=== PATIENT | male | born 1990 | race Caucasian/White ===

== ENCOUNTER 2017-10-25 02:14 | Emergency (ER) | payer OTHER ==
[2017-10-25 02:22] VITALS: BP 163/95
[2017-10-25] MEDS ORDERED: Sulfamethox/Trimethoprim DS 800/160* TAB PO ONE (03:40)
--- NOTE | 2017-10-25 03:42 | ED ---
Skin Complaint - HPI Summary HPI Summary: 27M presents with right middle finger swelling for a day. He states that noticed some swelling to distal tip of near end of nail bed. He denies any injury to the area. 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 no fever. no LOC of range of motion. - History of Current Complaint Chief Complaint: EDExtremityUpper Time Seen by Provider: 10/25/17 02:53 Stated Complaint: RIGHT FINGER INJURY Pain Intensity: 5 - Allergy/Home Medications Allergies/Adverse Reactions: Allergies Allergy/AdvReac Type Severity Reaction Status Date / Time Penicillins AdvReac Hives Verified 10/25/17 02:17 PMH/Surg Hx/FS Hx/Imm Hx Endocrine/Hematology History: Denies: Hx Anticoagulant Therapy Cardiovascular History: Denies: Hx Myocardial Infarction Infectious Disease History: No Infectious Disease History: Denies: Traveled Outside the [place] in Last 30 Days - Family History Known Family History: Positive: Diabetes - Social History Occupation: Employed Full-time Alcohol Use: Occasionally Review of Systems Negative: Fever Negative: Chest Pain Negative: Shortness Of Breath Positive: Edema - right middle finger All Other Systems Reviewed And Are Negative: Yes Physical Exam Triage Information Reviewed: Yes Vital Signs On Initial Exam: Initial Vitals Temp Pulse Resp BP Pulse Ox 98 F 88 16 163/95 100 10/25/17 02:14 10/25/17 02:14 10/25/17 02:14 10/25/17 02:14 10/25/17 02:14 Vital Signs Reviewed: Yes Appearance: Positive: Well-Appearing Skin: Positive: Warm, Dry, Other - erythema and edema near nail bed of right middle finger. Head/Face: Positive: Normal Head/Face Inspection Eyes: Positive: Normal, Conjunctiva Clear Respiratory/Lung Sounds: Positive: Clear to Auscultation, Breath Sounds Present Cardiovascular: Positive: Normal, RRR Musculoskeletal: Positive: Strength/ROM Intact - right middle finger, Other - good pulses, capillary refill<2 secs Neurological: Positive: Normal Psychiatric: Positive: Normal Procedures - Incision and Drainage Site: right middle finger Anesthesia: Digital Instrument(s): Scalpel Diagnostics - Vital Signs Vital Signs Temp Pulse Resp BP Pulse Ox 10/25/17 02:14 98 F 88 16 163/95 100 - Laboratory Lab Statement: Any lab studies that have been ordered have been reviewed, and results considered in the medical decision making process. Course/Dx - Course Course Of Treatment: 27M presents with right middle finger swelling for a day. He states that noticed some swelling to distal tip of near end of nail bed. He denies any injury to the area. 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 no fever. no LOC of range of motion. on exam has paronychia of right middle finger. attempt I&D paronchyia and unable to get any drainage as is to early. told to do warm soaks and take antibiotic. patient understand and agrees with plan. - Differential Diagnoses - Skin Complaint Differential Diagnoses: Abscess, Cellulitis, Contact Dermatitis - Diagnoses Provider Diagnoses: Paronychia of finger of right hand Discharge - Discharge Plan Condition: Good Disposition: HOME Prescriptions: Sulfamethox/Trimethoprim DS* [Bactrim DS 800/160 TAB*] 1 tab PO BID #19 tab Patient Education Materials: Paronychia (ED) Referrals: No Primary Care Phys,NOPCP [Primary Care Provider] - Additional Instructions: Soak finger twice a day Take bactrim twice a day for 10 days Take ibuprofen for pain every 6 hours Return to ED if develop fever, spreading redness or any new or worsening symptoms
== END 2017-10-25 04:13 | disposition home or self-care (01) ==
LOC: ED 02:14
DX: L03.011 Cellulitis of right finger (principal); Z88.0 Allergy status to penicillin
CPT/HCPCS: 10060; 99281; A9270-GY

== ENCOUNTER 2017-12-31 08:15 | Emergency (ER) | payer SELFPAY ==
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
[2017-12-31 10:49] VITALS: BP 129/78
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
== END 2017-12-31 10:47 | disposition home or self-care (01) ==
LOC: ED 08:15
DX: S40.012A Contusion of left shoulder, initial encounter (principal); S60.221A Contusion of right hand, initial encounter; Z87.891 Personal history of nicotine dependence; V89.2XXA Person injured in unspecified motor-vehicle accident, traffic, initial encounter; Y92.9 Unspecified place or not applicable
CPT/HCPCS: 99282

== ENCOUNTER 2018-09-07 22:54 | Emergency (ER) | payer OTHER ==
[2018-09-07] MEDS ORDERED: Ciproflox/Dexameth OTIC.SUSP* 7.5 ML BTL RIGHT EAR ONE (23:53)
--- NOTE | 2018-09-07 23:55 | ED ---
Throat Pain/Nasal Congestion - HPI Summary HPI Summary: 28-year-old male presents with right ear pain for the past 3 days. He admits to a decrease in hearing. He admits to pain with movement of his ears. He has history of psoriasis. He denies any fevers. No sinus congestion. On exam has psoriasis around right ear. Right canal is edematous and erythematous. TMs normal. We'll treat with Ciprodex. Told to follow with primary to make sure resolving. Patient understands agrees with plan. - History of Current Complaint Chief Complaint: EDEarPain Time Seen by Provider: 09/07/18 23:32 - Allergies/Home Medications Allergies/Adverse Reactions: Allergies Allergy/AdvReac Type Severity Reaction Status Date / Time Penicillins Allergy Hives Verified 09/07/18 23:47 Home Medications: Home Medications NK [No Home Medications Reported] 09/07/18 [History Confirmed 09/07/18] PMH/Surg Hx/FS Hx/Imm Hx Endocrine/Hematology History: Denies: Hx Anticoagulant Therapy, Hx Diabetes Cardiovascular History: Denies: Hx Coronary Artery Disease, Hx Hypertension, Hx Myocardial Infarction - Immunization History Immunizations Up to Date: Yes Infectious Disease History: No Infectious Disease History: Denies: Traveled Outside the [place] in Last 30 Days - Family History Known Family History: Positive: Cardiac Disease, Diabetes - Social History Alcohol Use: None Substance Use Type: Reports: None Smoking Status (MU): Never Smoked Tobacco Review of Systems Negative: Fever Positive: Ear Ache Negative: Chest Pain Negative: Shortness Of Breath All Other Systems Reviewed And Are Negative: Yes Physical Exam Triage Information Reviewed: Yes Vital Signs On Initial Exam: Initial Vitals Temp Pulse Resp BP Pulse Ox 98.9 F 70 15 156/78 96 09/07/18 23:10 09/07/18 23:10 09/07/18 23:10 09/07/18 23:10 09/07/18 23:10 Vital Signs Reviewed: Yes Appearance: Positive: Well-Appearing Skin: Positive: Warm, Dry Head/Face: Positive: Normal Head/Face Inspection Eyes: Positive: Normal, EOMI, RANDEE, Conjunctiva Clear ENT: Positive: Pharynx normal, TMs normal, Other - pain with manipulation of tragus. edematous and erythematous right canal ear Respiratory/Lung Sounds: Positive: Clear to Auscultation, Breath Sounds Present Cardiovascular: Positive: Normal, RRR Musculoskeletal: Positive: Normal Neurological: Positive: Normal Psychiatric: Positive: Normal Diagnostics - Vital Signs Vital Signs Temp Pulse Resp BP Pulse Ox 09/07/18 23:10 98.9 F 70 15 156/78 96 - Laboratory Lab Statement: Any lab studies that have been ordered have been reviewed, and results considered in the medical decision making process. EENT Course/Dx - Course Course Of Treatment: 28-year-old male presents with right ear pain for the past 3 days. He admits to a decrease in hearing. He admits to pain with movement of his ears. He has history of psoriasis. He denies any fevers. No sinus congestion. On exam has psoriasis around right ear. Right canal is edematous and erythematous. TMs normal. We'll treat with Ciprodex. Told to follow with primary to make sure resolving. Patient understands agrees with plan - Differential Diagnoses Differential Diagnoses: Otitis Externa, Otitis Media, Sinusitis - Diagnoses Provider Diagnoses: Right otitis externa Discharge - Sign-Out/Discharge Documenting (check all that apply): Patient Departure - Discharge Plan Condition: Good Disposition: HOME Patient Education Materials: Otitis Externa (ED) Referrals: Gavin Licona MD [Primary Care Provider] - Additional Instructions: Use 4 drops twice a day for 7 days Take Tylenol or ibuprofen for pain every 6 hours as needed Avoid swimming until done with antibiotic Follow up with primary in a week to make sure resolving Return to ED if develop any new or worsening symptoms - Billing Disposition and Condition Condition: GOOD Disposition: Home
[2018-09-08 00:15] VITALS: BP 126/70
== END 2018-09-08 00:15 | disposition home or self-care (01) ==
LOC: ED 22:54
DX: H60.91 Unspecified otitis externa, right ear (principal); L40.9 Psoriasis, unspecified; Z88.0 Allergy status to penicillin
CPT/HCPCS: 99282; A9270-GY

== ENCOUNTER 2018-11-11 03:22 | Emergency (ER) | payer OTHER ==
--- NOTE | 2018-11-11 04:32 | ED ---
Lower Extremity - HPI Summary HPI Summary: 28 year old M presenting to [facility] complains of left thigh pain that radiates to his back and down his left leg since five days ago, worse since one hour ago. Patient describes the pain as burning and pinching. The patient rates the pain 4 /10 in severity. Symptoms aggravated by sitting for long periods of time. Symptoms alleviated by nothing. Patient denies dysuria, problems with gait, and left calf pain. 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 - History of Current Complaint Chief Complaint: EDExtremityLower Stated Complaint: LEG PAIN Time Seen by Provider: 11/11/18 04:18 Hx Obtained From: Patient Onset/Duration: Still Present - 5 Severity Currently: Moderate Pain Intensity: 4 Pain Scale Used: 0-10 Numeric Associated Signs And Symptoms: Positive: Negative - dysuria, problems with gait , and left calf pain Aggravating Factor(s): Nothing Alleviating Factor(s): Nothing - Allergies/Home Medications Allergies/Adverse Reactions: Allergies Allergy/AdvReac Type Severity Reaction Status Date / Time Penicillins Allergy Hives Verified 11/11/18 04:25 PMH/Surg Hx/FS Hx/Imm Hx Previously Healthy: No - Hx psorasis, hx varicose veins Endocrine/Hematology History: Denies: Hx Anticoagulant Therapy, Hx Diabetes Cardiovascular History: Denies: Hx Coronary Artery Disease, Hx Hypertension, Hx Myocardial Infarction - Surgical History Surgery Procedure, Year, and Place: None Infectious Disease History: No Infectious Disease History: Denies: Traveled Outside the [place] in Last 30 Days - Family History Known Family History: Positive: Cardiac Disease, Diabetes - Social History Alcohol Use: None Hx Substance Use: No Substance Use Type: Reports: None Hx Tobacco Use: No Smoking Status (MU): Never Smoked Tobacco Review of Systems Constitutional: Negative - problems with gait Negative: dysuria Musculoskeletal: Negative - left calf pain Positive: Other - left thigh pain All Other Systems Reviewed And Are Negative: Yes Physical Exam - Summary Physical Exam Summary: Appearance: Well-appearing, Well-nourished, lying in bed comfortable Skin: Warm, dry, no obvious rash Eyes: sclera anicteric, no conjunctival pallor ENT: mucous membranes moist Neck: deferred Respiratory: No signs of respiratory distress Cardiovascular: Appears well perfused, pulses are nml Abdomen: deferred Musculoskeletal: Moving all 4 extremities without obvious discomfort Neurological: Awake and alert, mentation is normal, speech is fluent and appropriate Psychiatric: affect is normal, does not appear anxious or depressed Triage Information Reviewed: Yes Vital Signs On Initial Exam: Initial Vitals Temp Pulse Resp BP Pulse Ox 97.7 F 106 16 128/80 96 11/11/18 03:23 11/11/18 03:23 11/11/18 03:23 11/11/18 03:23 11/11/18 03:23 Vital Signs Reviewed: Yes Diagnostics - Vital Signs Vital Signs Temp Pulse Resp BP Pulse Ox 11/11/18 03:23 97.7 F 106 16 128/80 96 - Laboratory Lab Statement: Any lab studies that have been ordered have been reviewed, and results considered in the medical decision making process. Lower Extremity Course/Dx - Course Course Of Treatment: 28 year old M presenting to [facility] complains of left thigh pain that radiates to his back and down his left leg described as burning and pinching since five days ago, worse since one hour ago. Symptoms aggravated by sitting for long periods of time. Discussed discharge plan with patient. He was given instructions to allow the sciatica to get better on its own and to follow up with his primary care provider. Recommended over the counter Motrin to help alleviate some pain. Patient understands. He is agreeable to discharge. - Diagnoses Provider Diagnoses: Sciatica Discharge - Sign-Out/Discharge Documenting (check all that apply): Patient Departure - Discharge - Discharge Plan Condition: Good Disposition: HOME Patient Education Materials: Sciatica (ED), Lower Back Exercises (ED) Referrals: Gavin Licona MD [Primary Care Provider] - - Attestation Statements Document Initiated by Scribe: Yes Documenting Scribe: Cheyenne Valles Provider For Whom Hemant is Documenting (Include Credential): Keegan Evans MD Scribe Attestation: Cheyenne Weinberg, scribed for Keegan Evans MD on 11/11/18 at 0439. Status of Scribe Document: Ready
[2018-11-11 04:37] VITALS: BP 136/82
== END 2018-11-11 04:35 | disposition home or self-care (01) ==
LOC: ED 03:22
DX: M54.30 Sciatica, unspecified side (principal); M79.652 Pain in left thigh; M54.9 Dorsalgia, unspecified
CPT/HCPCS: 99282

== ENCOUNTER 2018-11-25 10:57 | Emergency (ER) | payer OTHER ==
[2018-11-25 13:38] VITALS: BP 127/85
--- NOTE | 2018-11-25 15:39 | ED ---
Back Pain - HPI Summary HPI Summary: Patient is a 28-year-old male with no past significant medical history presenting to the ED with mid lower back pain persistent over the course of the last week. He states he states constantly for his job and while at home and has been endorsing worsening pain to this area which radiates to the right posterior thigh. This is his third visit for being seen for same. First visit he was given steroids which he has not taken. Second visit he was giving no medications but stated he had sciatica. He comes in today with continuing pain and would like an image. He has not taken any [id number] medications for relief. He has not been using heat or ice. He remains ambulatory. Denies any bladder or bowel dysfunction. Denies any numbness or tingling in the bilateral lower extremities. - History of Current Complaint Chief Complaint: EDBackInjuryPain Stated Complaint: PAINIC ATTACK Time Seen by Provider: 11/25/18 11:34 Hx Obtained From: Patient Onset/Duration: Sudden Onset Onset/Duration: Started Hours Ago Timing: Constant Back Pain Location: Is Discrete @ - mid low back pain Pain Intensity: 2 Pain Scale Used: 0-10 Numeric Alleviating Symptom(s): Rest, Position Associated Signs And Symptoms: Negative: Swelling, Redness, Bruising, Weakness, Numbness, Tingling, Bladder Incontinence, Bowel Incontinence, Weight Loss, Pain with Weight Bearing - Risk Factors AAA Risk Factors: Negative TAD Risk Factors: Negative Cauda Equina Risk Factors: Negative Epidural Abscess Risk Factors: Negative - Allergies/Home Medications Allergies/Adverse Reactions: Allergies Allergy/AdvReac Type Severity Reaction Status Date / Time Penicillins Allergy Hives Verified 11/11/18 04:25 PMH/Surg Hx/FS Hx/Imm Hx Previously Healthy: Yes Endocrine/Hematology History: Denies: Hx Anticoagulant Therapy, Hx Diabetes Cardiovascular History: Denies: Hx Coronary Artery Disease, Hx Hypertension, Hx Myocardial Infarction - Surgical History Surgery Procedure, Year, and Place: None - Immunization History Hx Pertussis Vaccination: No Immunizations Up to Date: Yes Infectious Disease History: No Infectious Disease History: Denies: Traveled Outside the [place] in Last 30 Days - Family History Known Family History: Positive: Cardiac Disease, Diabetes - Social History Occupation: Employed Full-time Lives: With Family Alcohol Use: None Hx Substance Use: No Substance Use Type: Reports: None Hx Tobacco Use: No Smoking Status (MU): Never Smoked Tobacco Review of Systems Constitutional: Negative Negative: Fever, Chills, Fatigue, Skin Diaphoresis Negative: Palpitations, Chest Pain Negative: Shortness Of Breath, Cough Genitourinary: Negative Positive: no symptoms reported, see HPI Positive: Arthralgia - mid low back pain Skin: Negative Neurological: Negative All Other Systems Reviewed And Are Negative: Yes Physical Exam Triage Information Reviewed: Yes Vital Signs On Initial Exam: Initial Vitals Temp Pulse Resp BP Pulse Ox 99.0 F 104 18 139/80 96 11/25/18 11:09 11/25/18 11:09 11/25/18 11:09 11/25/18 11:09 11/25/18 11:09 Vital Signs Reviewed: Yes Appearance: Positive: Well-Appearing, Well-Nourished Skin: Positive: Warm, Skin Color Reflects Adequate Perfusion Head/Face: Positive: Normal Head/Face Inspection Eyes: Positive: EOMI, RANDEE, Conjunctiva Clear Neck: Positive: Supple, No Lymphadenopathy Respiratory/Lung Sounds: Positive: Clear to Auscultation, Breath Sounds Present Cardiovascular: Positive: Pulses are Symmetrical in both Upper and Lower Extremities Musculoskeletal: Positive: Strength/ROM Intact, Pain @ - mid low back Neurological: Positive: Speech Normal Psychiatric: Positive: Affect/Mood Appropriate AVPU Assessment: Alert Diagnostics - Vital Signs Vital Signs Temp Pulse Resp BP Pulse Ox 11/25/18 13:39 98.9 F 61 16 127/85 95 11/25/18 13:36 127/85 11/25/18 13:00 62 94 11/25/18 12:00 63 94 11/25/18 11:59 70 16 94 11/25/18 11:27 90 97 11/25/18 11:09 99.0 F 104 18 139/80 96 - Laboratory Lab Statement: Any lab studies that have been ordered have been reviewed, and results considered in the medical decision making process. Back Pain Course/Dx - Course Course Of Treatment: Patient is evaluated for acute mid spine and low back pain times one week radiating to the right posterior thigh which has been intermittent. Denies any blood in her pelvis which. Denies any numbness or tingling to the bilateral lower extremity's. Denies any foot drop. On physical examination, no step-off is noted, no ecchymosis or signs of trauma. CT of the lumbar spine obtained which is negative. Have encouraged him to take his prescribed prednisone and to follow-up with his PCP. He is okay with this plan and discharged. - Diagnoses Provider Diagnoses: Low back pain Discharge - Sign-Out/Discharge Documenting (check all that apply): Patient Departure - Discharge Plan Condition: Stable Disposition: HOME Patient Education Materials: Lumbar Radiculopathy (ED), Lower Back Exercises ( ED) Referrals: Gavin Licona MD [Primary Care Provider] - Additional Instructions: Please continue with your steroids. Ibuprofen 600mg three times daily Moist heat to the area Gentle stretches and massage - Billing Disposition and Condition Condition: STABLE Disposition: Home
== END 2018-11-25 13:39 | disposition home or self-care (01) ==
LOC: ED 10:57
DX: M54.5 Low back pain (principal); Z88.0 Allergy status to penicillin
CPT/HCPCS: 72131; 99283

== ENCOUNTER 2018-12-28 21:05 | Emergency (ER) | payer OTHER ==
[2018-12-28 22:45] LABS: ABS Basophils 0.2 10^3/ul (0-0.2); ABS Eosinophils 0.2 10^3/ul (0-0.6); ABS Lymphocytes 1.9 10^3/ul (1.0-4.8); ABS Monocytes 0.7 10^3/ul (0-0.8); ABS Neutrophils 5.9 10^3/ul (1.5-7.7); ABS Nucleated RBC 0 10^3/ul; Eosinophil % 1.9 %; Hematocrit 48 % (42-52); Hemoglobin 16.7 g/dl (14.0-18.0); Lymphocyte % 21.7 %; Mean Corpuscular HGB Conc 35 g/dl (31-36); Mean Corpuscular Hemoglobin 31 pg (27-31); Mean Corpuscular Volume 90 fL (80-94); Mean Platelet Volume 8.1 fL (7.4-10.4); Nucleated Red Blood Cells % 0; Platelet Count 366 10^3/ul (150-450); Red Cell Distribution Width 13 % (10.5-15); White Blood Count 8.9 10^3/ul (3.5-10.8)
--- NOTE | 2018-12-28 22:58 | ED ---
GI/ HPI - HPI Summary HPI Summary: Patient is a 28-year-old male with hx of psoriasis presenting with 2 month hx of diarrhea. Patient notes the diarrhea is soft, yellow, and has 2-3 episodes per day. Patient also notes intermittent, diffuse abdominal pain during this time. The pain changes based on what he eats. He was seen by his PCP on Tuesday for this problem. He was given antacids at the time, and denies any relief. He states the antacids do help with the occasionally epigastric burning pain that he gets. Patient denies any episodes of constipation. Denies chest pain, palpitations, cold/heat intolerance. Denies any recent travel, alcohol/tobacco/ drug use. Has hx of anxiety and patient admits the diarrhea/abdominal pain has caused distress as he is worried about the cause, is also having increased stress at home for several months. Denies any personal or family hx GERD, collitis, IBS, thyroid disease. Denies recent antibiotic use. has not camped or drank any unfiltered water. no fevers, weight loose or blood in stool. - History of Current Complaint Chief Complaint: EDAbdPain Time Seen by Provider: 12/28/18 22:18 Stated Complaint: ABD PAIN Hx Obtained From: Patient Onset/Duration: Started Weeks Ago, Still Present Timing: Intermittent Severity: Mild Current Severity: Mild Pain Intensity: 1 Location of Pain: Diffuse, Umbilical Pain Characteristics: Aching Associated Signs and Symptoms: Positive: Diarrhea, Abdominal Pain. Negative: Dizziness, Syncope, Nausea, Vomiting, Constipation, Fever, Dysuria, Chills, Lightheadedness, Cough, Chest Pain Alleviating Factor(s): Nothing - Allergy/Home Medications Allergies/Adverse Reactions: Allergies Allergy/AdvReac Type Severity Reaction Status Date / Time Penicillins Allergy Hives Verified 12/28/18 21:11 Home Medications: Home Medications Omeprazole 40 mg PO DAILY 12/28/18 [History Confirmed 12/28/18] PMH/Surg Hx/FS Hx/Imm Hx Previously Healthy: Yes Endocrine/Hematology History: Denies: Hx Anticoagulant Therapy, Hx Diabetes, Hx Thyroid Disease Cardiovascular History: Denies: Hx Coronary Artery Disease, Hx Hypertension, Hx Myocardial Infarction Respiratory History: Denies: Hx Asthma, Hx Chronic Obstructive Pulmonary Disease (COPD) GI History: Denies: Hx Crohn's Disease, Hx Gastroesophageal Reflux Disease, Hx Irritable Bowel Psychiatric History: Reports: Hx Anxiety - Surgical History Surgery Procedure, Year, and Place: None Infectious Disease History: No Infectious Disease History: Denies: Traveled Outside the [place] in Last 30 Days - Family History Known Family History: Positive: Cardiac Disease - Father, [place], 39 , Diabetes - Social History Alcohol Use: None Hx Substance Use: No Substance Use Type: Reports: None Hx Tobacco Use: No Smoking Status (MU): Never Smoked Tobacco Review of Systems Negative: Fever, Chills, Fatigue Negative: Palpitations, Chest Pain Negative: Shortness Of Breath, Cough Positive: Abdominal Pain, Diarrhea. Negative: Vomiting, Nausea Positive: no symptoms reported. Negative: burning, hematuria, pain Negative: Myalgia Negative: Headache Positive: Anxious All Other Systems Reviewed And Are Negative: Yes Physical Exam Triage Information Reviewed: Yes Vital Signs On Initial Exam: Initial Vitals Temp Pulse Resp BP Pulse Ox 97.0 F 105 16 150/102 97 12/28/18 21:07 12/28/18 21:07 12/28/18 21:07 12/28/18 21:07 12/28/18 21:07 Vital Signs Reviewed: Yes Appearance: Positive: Well-Appearing - Appears anxious, Well-Nourished Skin: Positive: Warm, Dry, Scaly Skin/Lesions - Psoriatic lesions on scalp, Erythema @ - upper back, patient attributes to anxiety Head/Face: Positive: Normal Head/Face Inspection Eyes: Positive: Normal, EOMI, RANDEE Neck: Positive: Supple, Nontender, No Lymphadenopathy, Other: - No thyromegaly Respiratory/Lung Sounds: Positive: Clear to Auscultation, Breath Sounds Present Cardiovascular: Positive: Normal, RRR. Negative: Murmur, Leg Edema Left, Leg Edema Right Abdomen Description: Positive: Nontender, No Organomegaly, Soft Bowel Sounds: Positive: Present Musculoskeletal: Positive: Normal, Strength/ROM Intact Neurological: Positive: Normal, Sensory/Motor Intact, Alert, Oriented to Person Place, Time Psychiatric: Positive: Affect/Mood Appropriate, Anxious Diagnostics - Vital Signs Vital Signs Temp Pulse Resp BP Pulse Ox 12/28/18 21:07 97.0 F 105 16 150/102 97 - Laboratory Result Diagrams: 12/28/18 22:34 12/28/18 22:34 Lab Statement: Any lab studies that have been ordered have been reviewed, and results considered in the medical decision making process. GIGU Course/Dx - Course Course Of Treatment: 28-year-old male presents with loose stool for the past 2 months. He states his stool is yellow. He admits occasional abdominal pain that seems to change based on what he eats. no fevers, weight loss or blood in stool. no nausea or vomiting. on exam nontender abd. appears anxious. denies any si/hi. wbc normal. crp normal. discussed that should follow up with primary as may benefit for testing for celiac or other malaborption disorder but symptoms are likely due to ibs. told to keep a food journal. patient declined anxiety medication. patient understand and agrees with plan - Diagnoses Differential Diagnoses - Male: Diarrhea, Gastroenteritis (Bacterial), Gastroenteritis (Viral) Provider Diagnoses: Diarrhea Discharge - Sign-Out/Discharge Documenting (check all that apply): Patient Departure Patient Received Moderate/Deep Sedation with Procedure: No - Discharge Plan Condition: Good Disposition: HOME Patient Education Materials: Irritable Bowel Syndrome (ED) Referrals: Rajat Chatterjee MD [Medical Doctor] - Jade Perry NP [Primary Care Provider] - Additional Instructions: symptoms likely due to IBS but you should follow up with primary for further work or can follow up with GI keep a food journal of foods eat and symptoms Drink plenty of fluids Take Tylenol as needed for pain Return to ED if develop any new or worsening symptoms - Billing Disposition and Condition Condition: GOOD Disposition: Home
[2018-12-28 23:01] LABS: ALT 22 U/L (7-52); AST 17 U/L (13-39); Albumin 4.9 g/dL (3.2-5.2); Albumin/Globulin Ratio 1.8 (1-3); Alkaline Phosphatase 106 U/L (34-104); Anion Gap 5 mmol/L (2-11); BUN/Creatinine Ratio 10.2 (8-20); Blood Urea Nitrogen 11 mg/dL (6-24); C Reactive Protein < 1.00 mg/L (<8.01); CO2 Carbon Dioxide 30 mmol/L (22-32); Calcium 9.8 mg/dL (8.6-10.3); Chloride 104 mmol/L (101-111); EGFR Non-African American 82.6 (>60); Globulin 2.8 g/dL (2-4); Glucose 113 mg/dL (70-100); Potassium 3.7 mmol/L (3.5-5.0); Sodium 139 mmol/L (135-145); Total Protein 7.7 g/dL (6.4-8.9)
[2018-12-28 23:30] LABS: TSH (Thyroid Stimulating Horm) 1.65 mcIU/mL (0.34-5.60)
[2018-12-28 23:56] VITALS: BP 127/78
== END 2018-12-28 23:55 | disposition home or self-care (01) ==
LOC: ED 21:05
DX: R19.7 Diarrhea, unspecified (principal); R10.9 Unspecified abdominal pain; Z88.0 Allergy status to penicillin
CPT/HCPCS: 36415; 80053; 83690; 84443; 85025; 86140; 99283

== ENCOUNTER 2019-05-28 20:33 | Emergency (ER) | payer OTHER ==
[2019-05-28 23:02] LABS: ABS Eosinophils 0.2 10^3/ul (0-0.6); ABS Lymphocytes 2.1 10^3/ul (1.0-4.8); ABS Monocytes 0.8 10^3/ul (0-0.8); ABS Neutrophils 6.7 10^3/ul (1.5-7.7); Eosinophil % 2.1 %; Hematocrit 47 % (42-52); Hemoglobin 16.3 g/dL (14.0-18.0); Lymphocyte % 20.9 %; Mean Corpuscular HGB Conc 35 g/dL (31-36); Mean Corpuscular Hemoglobin 32 pg (27-31); Mean Corpuscular Volume 93 fL (80-94); Mean Platelet Volume 8.3 fL (7.4-10.4); Platelet Count 347 10^3/uL (150-450); Red Blood Count 5.06 10^6 /uL (4.18-5.48); Red Cell Distribution Width 13 % (10-15); White Blood Count 9.8 10^3/uL (3.5-10.8)
--- NOTE | 2019-05-29 00:23 | ED ---
Respiratory - HPI Summary HPI Summary: This patient is a 29 year old M presenting to ED with a chief complaint of anxiety attack since 05/26/19. Patient reports he was given anxiety medication but it did not help. He has difficulty breathing, heart racing, weakness, and feels shaky. The patient rates the pain 0/10 in severity. Symptoms aggravated by nothing. Symptoms alleviated by nothing. - History of Current Complaint Chief Complaint: EDUpperRespComplaint Stated Complaint: SOB PER PT Time Seen by Provider: 05/29/19 00:04 Hx Obtained From: Patient Onset/Duration: Lasting Days - Since 05/26/19, Still Present Timing: Constant Current Severity: None Pain Intensity: 0 Sputum Amount: None Aggravating Factor(s): Nothing Alleviating Factor(s): Nothing Associated Signs and Symptoms: SOB - Allergy/Home Medications Allergies/Adverse Reactions: Allergies Allergy/AdvReac Type Severity Reaction Status Date / Time Penicillins Allergy Hives Verified 05/29/19 00:19 PMH/Surg Hx/FS Hx/Imm Hx Endocrine/Hematology History: Denies: Hx Anticoagulant Therapy, Hx Diabetes, Hx Thyroid Disease Cardiovascular History: Denies: Hx Coronary Artery Disease, Hx Hypertension, Hx Myocardial Infarction Respiratory History: Denies: Hx Asthma, Hx Chronic Obstructive Pulmonary Disease (COPD) GI History: Denies: Hx Crohn's Disease, Hx Gastroesophageal Reflux Disease, Hx Irritable Bowel Sensory History: Denies: Hx Eye Prosthesis, Hx Legally Blind, Hx Deafness Opthamlomology History: Denies: Hx Eye Prosthesis, Hx Legally Blind Neurological History: Denies: Hx Dementia Psychiatric History: Reports: Hx Anxiety - Surgical History Surgery Procedure, Year, and Place: None Infectious Disease History: No Infectious Disease History: Denies: Traveled Outside the [place] in Last 30 Days - Family History Known Family History: Positive: Cardiac Disease - Father, [place], 39 , Diabetes - Social History Alcohol Use: None Hx Substance Use: No Substance Use Type: Reports: None Hx Tobacco Use: No Smoking Status (MU): Never Smoked Tobacco Review of Systems Cardiovascular: Other - Heart racing Positive: Shortness Of Breath Neurological: Other - Shakiness Positive: Weakness Positive: Anxious All Other Systems Reviewed And Are Negative: Yes Physical Exam - Summary Physical Exam Summary: VITAL SIGNS: Reviewed. GENERAL: Patient is a well-developed and nourished male who is lying comfortable in the stretcher. Patient is not in any acute respiratory distress. HEAD AND FACE: No signs of trauma. No ecchymosis, hematomas or skull depressions. No sinus tenderness. EYES: PERRLA, EOMI x 2, No injected conjunctiva, no nystagmus. EARS: Hearing grossly intact. Ear canals and tympanic membranes are within normal limits. MOUTH: Oropharynx within normal limits. NECK: Supple, trachea is midline, no adenopathy, no JVD, no carotid bruit, no c- spine tenderness, neck with full ROM CHEST: Symmetric, no tenderness at palpation LUNGS: Clear to auscultation bilaterally. No wheezing or crackles. CVS: Regular rate and rhythm, S1 and S2 present, no murmurs or gallops appreciated. ABDOMEN: Soft, non-tender. No signs of distention. No rebound no guarding, and no masses palpated. Bowel sounds are normal. EXTREMITIES: FROM in all major joints, no edema, no cyanosis or clubbing. NEURO: Alert and oriented x 3. No acute neurological deficits. Speech is normal and follows commands. SKIN: Dry and warm PSYCH: anxious Triage Information Reviewed: Yes Vital Signs On Initial Exam: Initial Vitals Temp Pulse Resp BP Pulse Ox 98.6 F 108 19 160/96 96 05/28/19 20:38 05/28/19 20:38 05/28/19 20:38 05/28/19 20:38 05/28/19 20:38 Vital Signs Reviewed: Yes Diagnostics - Vital Signs Vital Signs Temp Pulse Resp BP Pulse Ox 05/28/19 22:38 97.6 F 105 12 144/87 99 05/28/19 20:38 98.6 F 108 19 160/96 96 - Laboratory Lab Results: Lab Results 05/28/19 05/28/19 Range/Units 22:49 22:49 WBC 9.8 (3.5-10.8) 10^3/uL RBC 5.06 (4.18-5.48) 10^6 /uL Hgb 16.3 (14.0-18.0) g/dL Hct 47 (42-52) % MCV 93 (80-94) fL MCH 32 H (27-31) pg MCHC 35 (31-36) g/dL RDW 13 (10-15) % Plt Count 347 (150-450) 10^3/uL MPV 8.3 (7.4-10.4) fL Neut % (Auto) 68.3 % Lymph % (Auto) 20.9 % Stanley % (Auto) 8.4 % Eos % (Auto) 2.1 % Baso % (Auto) 0.3 % Absolute Neuts (auto) 6.7 (1.5-7.7) 10^3/ul Absolute Lymphs (auto) 2.1 (1.0-4.8) 10^3/ul Absolute Monos (auto) 0.8 (0-0.8) 10^3/ul Absolute Eos (auto) 0.2 (0-0.6) 10^3/ul Absolute Basos (auto) 0.0 (0-0.2) 10^3/ul Absolute Nucleated RBC 0.0 10^3/ul Nucleated RBC % 0.0 B-Natriuretic Peptide 18 (<=100) pg/mL Result Diagrams: 05/28/19 22:49 Lab Statement: Any lab studies that have been ordered have been reviewed, and results considered in the medical decision making process. - Radiology CXR Radiology Interpretation Completed By: ED Physician Summary of Radiographic Findings: No acute processes, pending official radiology report. Re-Evaluation - Re-Evaluation First Eval Re-Evaluation Time: 01:10 Comment: Discussed results with patient. Patient reports feeling better. Patient will be discharged home with dx of anxiety. Patient understands and agrees with this plan. Disposition - Course Course Of Treatment: This patient is a 29 year old M presenting to ED with a chief complaint of anxiety attack since 05/26/19. In the ED course, patient received Xanax. Blood work obtained. CXR revealed: No acute processes, pending official radiology report. Patient will be discharged home with dx of anxiety. Patient understands and agrees with this plan. - Diagnoses Provider Diagnoses: Anxiety Discharge - Sign-Out/Discharge Documenting (check all that apply): Patient Departure - Discharge Patient Received Moderate/Deep Sedation with Procedure: No - Discharge Plan Condition: Stable Disposition: HOME Patient Education Materials: Anxiety (ED) Referrals: Ant Mckeon DO [Primary Care Provider] - 2 Days Additional Instructions: Follow up with your primary care provider in 1-2 days. RETURN TO THE ER FOR WORSENING OR CHANGING SYMPTOMS. - Attestation Statements Document Initiated by Scribe: Yes Documenting Scribe: Gavin Cabrera Provider For Whom Scribe is Documenting (Include Credential): Cristal Warner MD Scribe Attestation: I, Gavin Cabrera, scribed for Cristal Warner MD on 05/29/19 at 0113. Status of Scribe Document: Ready
[2019-05-29] MEDS ORDERED: ALPRAZolam TAB* 0.5 MG PO ONE (00:28)
[2019-05-29 01:54] VITALS: BP 134/87
== END 2019-05-29 01:54 | disposition home or self-care (01) ==
LOC: ED 20:33
DX: F41.9 Anxiety disorder, unspecified (principal); Z88.0 Allergy status to penicillin
CPT/HCPCS: 36415; 71046; 83880; 85025; 99283; A9270-GY